=== PATIENT | male | born 1990 | race Two or more races ===

== ENCOUNTER 2022-08-06 14:50 | Emergency (ER) | payer OTHER ==
[~2022-08-06] VITALS: Ht 180.3 cm; Wt 96.8 kg
[2022-08-06 18:39] VITALS: BP 126/73
[2022-08-06] MEDS ORDERED: TETANUS-DIPTH-ACEL PERTUSSIS 0.5ML SYR Tdap IM ONE (19:00)
[2022-08-06] MEDS ORDERED: IBUPROFEN 800 MG TAB PO ONE (19:00)
== END 2022-08-06 20:53 | disposition home or self-care (01) ==
LOC: ER 14:54
DX: S80.212A Abrasion, left knee, initial encounter (principal); S80.211A Abrasion, right knee, initial encounter; S81.802A Unspecified open wound, left lower leg, initial encounter; V29.99XA Rider (driver) (passenger) of other motorcycle injured in unspecified traffic accident, initial encounter; Y93.89 Activity, other specified; Y92.89 Other specified places as the place of occurrence of the external cause; Y99.8 Other external cause status
CPT/HCPCS: 12001; 73560; 73590; 90471; 90715; 99284; J2001